=== PATIENT | female | born 1980 | race Caucasian/White ===

== ENCOUNTER 2022-10-11 11:34 | Outpatient (CLI) | payer BC, SELFPAY ==
[2022-10-11 17:53] LABS: Cholesterol* 208 mg/dL (90-199)
[2022-10-11 17:54] LABS: HDL Cholesterol* 74 mg/dL (>=50); LDL Cholesterol Calculated 119 mg/dL (<100); Triglycerides* 74 mg/dL (40-149)
== END 2022-10-11 11:35 | disposition home or self-care (01) ==
LOC: LONREF 11:36
PROVIDERS: PCP Family Medicine; Visit Provider Family Medicine
DX: Z13.6 Encounter for screening for cardiovascular disorders (principal)
CPT/HCPCS: 80061

== ENCOUNTER 2023-01-04 15:03 | Outpatient (CLI) | payer BC, SELFPAY ==
--- NOTE | 2023-01-04 15:20 | CRLHL7_ITS ---
For Patients: As a result of the Century Cures Act, medical imaging exams and procedure reports are released immediately into your electronic medical record. You may view this report before your referring provider. If you have questions, please contact your health care provider. BILATERAL SCREENING MAMMOGRAM WITH COMPUTER-AIDED DETECTION AND TOMOSYNTHESIS TECHNIQUE: CC and MLO views were obtained. These mammographic images have been obtained using full-field digital technique. These mammographic images were interpreted with the benefit of computer-aided detection. Breast Tomosynthesis was used in this interpretation. COMPARISON FILM: Baseline. FINDINGS: The breasts are heterogeneously dense, which may obscure small masses IMPRESSION: There is no radiographic evidence for malignancy. ASSESSMENT: BI-RADS Category 2: Benign RECOMMENDATION: Routine screening mammogram in 1 year. A lay language report of this examination will be provided to the patient. Gómez Vang M.D. Diagnostic Radiologist [email or web address] Transcribed: 2:09 pm DW/Dictated by: Gómez Vang MD @ 01/05/2023 9:46:00 AM (Electronically Signed)
== END 2023-01-04 15:04 | disposition home or self-care (01) ==
LOC: MAMMO 15:04
PROVIDERS: PCP Family Medicine; Visit Provider Family Medicine
DX: Z12.31 Encounter for screening mammogram for malignant neoplasm of breast (principal); R92.2 Inconclusive mammogram
CPT/HCPCS: 77063; 77067

== ENCOUNTER 2024-04-02 09:51 | Outpatient (CLI) | payer BC, SELFPAY ==
--- OUTSIDE RECORDS SUMMARY | 2024-04-02 10:08 | XMS_ITS | Continuity of Care Document ---
Author Name Unknown Organization Z [facility] Address [address] [place] [address] Phone Care Team Providers Care Associate Professor Of Medicine Name Role Phone Unavailable Unavailable Unavailable Advance Directives Directive Yes / No Effective Date File Name No Information Encounters Encounter Description Practice Location Reason(s) For Visit Diagnoses Date Provider Providers Copied on Encounter Z [facility], [address], [place], [address], [place] tel:[phone] [facility] No Information 8 No Information Family History Family Member Type Diagnosis Age At Onset No Information Payers Payer name Insurance type Covered democrat ID Authoriza tion(s) No Information Social History Type Description Quantity Date Captured Comments Sex Female Smoking Status No Information Chief Complaint And Reason For Visit No Information Reason For Referral Reason For Referral No Information History Of Present Illness Encounter Date Complaint History Of Prese nt Illness No Information Functional Status Date Functional Assessmen t No Information Instructions Date Instruction Additional Infor mation No Information Assessments Type Assessment Date No Information Patient Care Teams Name Effective Dates (start - stop) Status Members No Information
== END 2024-04-02 09:52 | disposition home or self-care (01) ==
PROVIDERS: PCP Family Medicine; Visit Provider Family Medicine
DX: Z00.00 Encounter for general adult medical examination without abnormal findings (principal); R53.83 Other fatigue; Z13.6 Encounter for screening for cardiovascular disorders
CPT/HCPCS: 80053; 80061; 84443

== ENCOUNTER 2024-05-15 08:00 | Outpatient (RCR) | payer BC, SELFPAY | END 2024-09-12 23:59 | disposition home or self-care (01) | PROVIDERS: PCP Family Medicine; Visit Provider Family Medicine | DX: M41.85 Other forms of scoliosis, thoracolumbar region (principal); R29.3 Abnormal posture; M53.3 Sacrococcygeal disorders, not elsewhere classified; M54.50 Low back pain, unspecified; Z51.89 Encounter for other specified aftercare | CPT/HCPCS: 97110; 97140; 97161 ==

== ENCOUNTER 2024-06-06 14:31 | Outpatient (CLI) | payer BC, SELFPAY ==
--- OUTSIDE RECORDS SUMMARY | 2024-06-06 14:33 | XMS_ITS | Continuity of Care Document ---
Author Organization [facility] Address [address] [place] [address] Phone Care Team Providers Care Glost Tile Sorter Name Role Phone Mathieu Maldonado MD Unavailable Unavailable Allergies, Adverse Reactions, Alerts Substance Reaction Status Criticality No Known Allergies Active No Inform ation Medications Medication Instructions Dosage Effective Dates (start - stop) Status Comments SERTRALINE HCL (unknown strength) Not Available - Active Procedures Procedure Date [facility] X Ray Exam Entire Spine 2/3 Advance Directives Directive Yes / No Effective Date File Name No Information Encounters Encounter Description Practice Location Reason(s) For Visit Diagnoses Date Provider Providers Copied on Encounter [facility], [address], [place], [place], [id number], [place] tel:[phone] [facility] [place] No Information Erica Murdock. [facility], [address], [place], [place], [id number], [place]. tel:[phone] Office/Outpati ent Visit,[facility], [address], [place], [place], [id number], [place] tel:[phone] [facility] [place] Adolescent idiopathic scoliosis, lumbar regionOther low back pain Erica Murdock. [facility], [address], [address], [place], [place], [id number], [place]. tel:[phone] Referring Provider: Mathieu Otero, [facility] [place] [address], [address]. tel:[phone] Family History Family Member Type Diagnosis Age At Onset Father Problem (finding) Diabetes mellitus Mother Problem (finding) Diabetes mellitus Mother Problem (finding) Cancer, unknown type Payers Payer name Insurance type Covered republican ID Authoryash simpson(s) [place] [id number] [facility] [id number] Social History Type Description Quantity Date Captured Comments Alcohol Use Details Unknown Caffeine Use Details Unknown Tobacco Use Status No Information Smoking Status No Information Sex Female Chief Complaint And Reason For Visit No Information Reason For Referral Reason For Referral No Information Plan Of Treatment Date Type Action Status Future Order: Radiology Order MR I-Lumbar (MRILUMBAR), Ordered on: Ordered Future Order: Radiology Order PA /Lateral Full Spine (PALatFS), Ordered on: Ordered History Of Present Illness Encounter Date Complaint History Of Prese nt Illness No Information Functional Status Date Functional Assessmen t No Information Instructions Date Instruction Additional Infor mation No Information Assessments Type Assessment Date No Information Patient Care Teams Name Effective Dates (start - stop) Status Members No Information
--- NOTE | 2024-06-06 14:45 | CRLHL7_ITS ---
For Patients: As a result of the Century Cures Act, medical imaging exams and procedure reports are released immediately into your electronic medical record. You may view this report before your referring provider. If you have questions, please contact your health care provider. Indication: Adolescent idiopathic scoliosis Technique: Multiplanar, multisequence, MRI of the lumbar spine, obtained without contrast. Comparison: Lumbar spine x-ray 04/02/2024 Findings: Thoracolumbar dextroconvex curvature, with preserved lumbar lordosis. No significant spondylolisthesis. Vertebral body heights are maintained. No acute osseous abnormality or focal compression deformity. Mild Modic type 1 opposing endplate changes at L5-S1. Otherwise, unremarkable bone marrow signal. The conus medullaris terminates at L1. No suspicious findings identified in the paraspinal soft tissues. The included SI joints are unremarkable. T12-L1 through L4-L5: Unremarkable intervertebral discs and facet joints. No significant neural foraminal or spinal canal stenosis. L5-S1: Disc degeneration, height loss, and mild diffuse bulge. Osteophytic endplate ridging. No neural foraminal or spinal canal stenosis. Impression: 1. Thoracolumbar dextroconvex curvature. 2. At L5-S1, degenerative disc and endplate changes as detailed. 3. No significant neural foraminal or spinal canal stenosis. Dictated by Michelle Schmitz MD @ 06/07/2024 2:05:56 PM (Electronically Signed)
== END 2024-06-06 14:32 | disposition home or self-care (01) ==
LOC: MRI 14:32
PROVIDERS: PCP Family Medicine; Visit Provider Specialist
DX: M41.126 Adolescent idiopathic scoliosis, lumbar region (principal); M51.37 Other intervertebral disc degeneration, lumbosacral region; M54.50 Low back pain, unspecified; M54.16 Radiculopathy, lumbar region
CPT/HCPCS: 72148

== ENCOUNTER 2024-07-15 14:56 | Outpatient (CLI) | payer BC, SELFPAY ==
--- OUTSIDE RECORDS SUMMARY | 2024-07-15 14:58 | XMS_ITS | Continuity of Care Document ---
Author Organization [facility] Address [address] [place] [address] Phone Care Team Providers Care Stage Rigger Name Role Phone Mathieu Maldonado MD Unavailable Unavailable Allergies, Adverse Reactions, Alerts Substance Reaction Status Criticality No Known Allergies Active No Inform ation Medications Medication Instructions Dosage Effective Dates (start - stop) Status Comments SERTRALINE HCL (unknown strength) Not Available - Active Procedures Procedure Date OFFICE/OUTPATIENT VISIT EST Phone Office/Outpatient Visit,[facility] 2023 X Ray Exam Entire Spine /3 Advance Directives Directive Yes / No Effective Date File Name No Information Encounters Encounter Description Practice Location Reason(s) For Visit Diagnoses Date Provider Providers Copied on Encounter OFFICE/OUTPATI ENT VISIT EST Phone [facility], [address], [place], [place], [id number], [place] tel:[phone] [facility] No Information Erica Murdock. [facility] [place], [address] [place] [address], [address], [id number], [place]. tel:[phone] Referring Provider: Mathieu Otero, [facility] [place] [address] [place] [address], [place] [address], [place], [address]. tel:[phone] Office/Outpati ent Visit,[facility], [address], [place], [place], [id number], [place] tel:[phone] [facility] [place] [facility] idiopathic scoliosis, lumbar regionOther low back pain Erica Murdock. [facility], [address], [place], [place], [address], [place]. tel:[phone] Referring Provider: Mathieu Otero, [facility] [address], [address], [place], [address]. tel:[phone] Family History Family Member Type Diagnosis Age At Onset Father Problem (finding) Diabetes mellitus Mother Problem (finding) Diabetes mellitus Mother Problem (finding) Cancer, unknown type Payers Payer name Insurance type Covered democrat ID Authoryash simpson(s) [facility] [address] [facility] [id number] Social History Type Description Quantity Date Captured [...]
--- NOTE | 2024-07-15 15:00 | CRLHL7_ITS ---
For Patients: As a result of the Century Cures Act, medical imaging exams and procedure reports are released immediately into your electronic medical record. You may view this report before your referring provider. If you have questions, please contact your health care provider. BILATERAL SCREENING MAMMOGRAM WITH COMPUTER-AIDED DETECTION AND TOMOSYNTHESIS TECHNIQUE: CC and MLO views were obtained. These mammographic images have been obtained using full-field digital technique. These mammographic images were interpreted with the benefit of computer-aided detection. Breast Tomosynthesis was used in this interpretation. COMPARISON FILM: 01/04/23 FINDINGS: The breasts are heterogeneously dense, which may obscure small masses IMPRESSION: There is no radiographic evidence for malignancy. ASSESSMENT: BI-RADS Category 2: Benign RECOMMENDATION: Routine screening mammogram in 1 year. A lay language report of this examination will be provided to the patient. Gómez Vang M.D. Diagnostic Radiologist [email or web address] Transcribed: 3:25 p.[email or web address] john/Dictated by: Gómez Vang MD @ 07/17/2024 11:17:00 AM (Electronically Signed)
== END 2024-07-15 14:57 | disposition home or self-care (01) ==
PROVIDERS: PCP Family Medicine; Visit Provider Family Medicine
DX: Z12.31 Encounter for screening mammogram for malignant neoplasm of breast (principal); R92.2 Inconclusive mammogram
CPT/HCPCS: 77063; 77067

== ENCOUNTER 2024-07-30 07:48 | Outpatient (CLI) | payer BC, SELFPAY ==
--- OUTSIDE RECORDS SUMMARY | 2024-07-30 07:51 | XMS_ITS | Continuity of Care Document ---
Author Organization [facility] Address [address] [place] [address] Phone Care Team Providers Care Podiatric Surgeon Name Role Phone Mathieu Maldonado MD Unavailable Unavailable Allergies, Adverse Reactions, Alerts Substance Reaction Status Criticality No Known Allergies Active No Inform ation Medications Medication Instructions Dosage Effective Dates (start - stop) Status Comments SERTRALINE HCL (unknown strength) Not Available - Active Procedures Procedure Date OFFICE/OUTPATIENT VISIT EST Phone Office/Outpatient Visit,[facility] 2023 X Ray Exam Entire Spine /3 Advance Directives Directive Yes / No Effective Date File Name No Information Encounters Encounter Description Practice Location Reason(s) For Visit Diagnoses Date Provider Providers Copied on Encounter OFFICE/OUTPATI ENT VISIT EST Phone [facility], [address], [place], [place], [id number], [place] tel:[phone] [facility] No Information Erica Murdock. [facility] [place], [address] [place] [address], [address], [id number], [place]. tel:[phone] Referring Provider: Mathieu Otero, [facility] [place] [address] [place] [address], [place] [address], [place], [address]. tel:[phone] Office/Outpati ent Visit,[facility], [address], [place], [place], [id number], [place] tel:[phone] [facility] [place] Ad[facility] idiopathic scoliosis, lumbar regionOther low back pain Erica Murdock. [facility], [address], [address], [place], [place], [id number], [place]. tel:[phone] Referring Provider: Mathieu Otero, [facility] [address], [address], [place], [address]. tel:[phone] Family History Family Member Type Diagnosis Age At Onset Father Problem (finding) Diabetes mellitus Mother Problem (finding) Diabetes mellitus Mother Problem (finding) Cancer, unknown type Payers Payer name Insurance type Covered alliance party ID Authoryash simpson(s) [facility] [id number] [facility] [id number] Social History Type Description Quantity Date Captured [...]
== END 2024-07-30 07:49 | disposition home or self-care (01) ==
LOC: RAD 07:48 → INJ CL 07:51
PROVIDERS: PCP Family Medicine; Visit Provider Family Medicine
DX: M54.16 Radiculopathy, lumbar region (principal); M51.36 Other intervertebral disc degeneration, lumbar region
CPT/HCPCS: 64483; J1100; Q9966

== ENCOUNTER 2025-06-20 08:17 | Outpatient (CLI) | payer BC, SELFPAY | END 2025-06-20 08:18 | disposition home or self-care (01) | LOC: NFLDREF 06-24 16:30 | PROVIDERS: PCP Family Medicine; Referring Provider Family Medicine; Visit Provider Family Medicine | DX: E78.5 Hyperlipidemia, unspecified (principal) | CPT/HCPCS: 80053; 80061 ==